=== PATIENT | male | born 1980 | race Asian ===

== ENCOUNTER → 2017-04-26 | Outpatient (CLI) | payer BC ==
[2017-04-26 11:29] LABS: HEMATOCRIT 45.9 % (42.0-52.0); HEMOGLOBIN 16.7 g/dl (14.0-18.0); MEAN CORPUSCULAR HEMOGLOBIN 28.9 pg (27.0-33.0); MEAN CORPUSCULAR HGB CONC 36.4 g/dl (32.0-36.5); MEAN CORPUSCULAR VOLUME 79.5 fl (80.0-96.0); PLATELET COUNT, AUTOMATED 252 10^3/uL (150-450); RED BLOOD COUNT 5.77 10^6/uL (4.30-6.10); RED CELL DISTRIBUTION WIDTH 12.2 % (11.5-14.5); WHITE BLOOD COUNT 6.4 10^3/uL (4.0-10.0)
[2017-04-26 12:13] LABS: ESTIMATED AVERAGE GLUCOSE 309 MG/DL (60-110); HEMOGLOBIN A1c 12.4 %
[2017-04-26 12:25] LABS: ALBUMIN 4.2 GM/DL (3.2-5.2); ALKALINE PHOSPHATASE 89 U/L (45-117); ANION GAP 10 MEQ/L (8-16); BILIRUBIN,TOTAL 0.9 MG/DL (0.2-1.0); CARBON DIOXIDE LEVEL 26 MEQ/L (21-32); CHLORIDE LEVEL 94 MEQ/L (98-107); GLOMERULAR FILTRATION RATE > 60.0 (>60); GLUCOSE, FASTING 334 MG/DL (70-100); HDL CHOLESTEROL 35 MG/DL (>40); POTASSIUM SERUM 4.4 MEQ/L (3.5-5.1); SODIUM LEVEL 130 MEQ/L (136-145); TRIGLYCERIDES LEVEL 3301 MG/DL (<150)
[2017-04-26 14:14] LABS: ALBUMIN/GLOBULIN RATIO 1.14 (1.00-1.93); ALT/SGPT 53 U/L (12-78); AST/SGOT 32 U/L (7-37); BLOOD UREA NITROGEN 14 MG/DL (7-18); CALCIUM LEVEL 9.2 MG/DL (8.5-10.1); CHOLESTEROL LEVEL 294 MG/DL (<200); NON-HDL-C 259 MG/DL; TOTAL PROTEIN 7.9 GM/DL (6.4-8.2)
[2017-05-01 10:10] LABS: C-PEPTIDE 2.9 ng/mL (1.1-4.4)
== END ==
LOC: M LRY 10:10
DX: E11.65 Type 2 diabetes mellitus with hyperglycemia (principal); E55.9 Vitamin D deficiency, unspecified; G47.00 Insomnia, unspecified; Z13.1 Encounter for screening for diabetes mellitus; Z13.220 Encounter for screening for lipoid disorders